=== PATIENT | male | born 1995 | race Caucasian/White ===

== ENCOUNTER 2023-02-17 03:42 | Emergency (ER) | payer SELFPAY ==
[2023-02-17 03:43] VITALS: BP 137/91; PULSE 113; RESP 14; TEMP 36.6; O2SAT 97; BMI 20.7
--- NOTE | 2023-02-17 03:52 | EKG12_ITS ---
Test Reason : CP Blood Pressure : / mmHG Vent. Rate : 091 BPM Atrial Rate : 091 BPM P-R Int : 138 ms QRS Dur : 096 ms QT Int : 346 ms P-R-T Axes : 067 034 064 degrees QTc Int : 425 ms Normal sinus rhythm Confirmed by SHARIFA ROBERTS MD ([id number]), video news editor LISSETT TAYLOR ([id number]) on 02/18/2023 12:36:57 PM Referred By: SAMMY Confirmed By:SHARIFA ROBERTS MD
[2023-02-17 03:55] VITALS: O2SAT 97
--- NOTE | 2023-02-17 04:00 | EKG12_ITS ---
Test Reason : CP Blood Pressure : / mmHG Vent. Rate : 089 BPM Atrial Rate : 089 BPM P-R Int : 142 ms QRS Dur : 098 ms QT Int : 346 ms P-R-T Axes : 074 053 065 degrees QTc Int : 420 ms Normal sinus rhythm Abnormal ECG Confirmed by ALEJANDRA STEIN, SHARIFA ([id number]), editor managing director LISSETT TAYLOR ([id number]) on 02/18/2023 12:36:38 PM Referred By: SAMMY Confirmed By:SHARIFA ROBERTS MD
[2023-02-17 04:03] LABS: Absolute Lymphocyte Count 5.28 X10^3/uL (0.83-4.51); Absolute Neutrophil Count 10.4 X10^3/uL (2.0-7.7); Basophil# 0.14 X10^3/uL; Basophil% 0.8 % (0-1); Eosinophil# 0.33 X10^3/uL; Eosinophils% 1.9 % (0-5); Hematocrit 40.3 % (40-54); Hemoglobin 14.1 g/dL (13.0-16.5); Lymphocyte # 5.28 X10^3/ul (0.83-4.51); Lymphocyte % 30.1 % (19-41); Mean Corpuscular Hgb 29.6 pg (27.0-32.0); Mean Corpuscular Volume 84.7 fL (80-94); Mean Platelet Vol. 9.7 fl (6.2-12.0); Monocyte% 7.4 % (0-10); NRBC Flagged by Analyzer 0 % (0-5); Neutrophil # 10.36 X10^3/uL (2.7-7.7); Neutrophil % 58.9 % (47-70); POSITIVE DIFFERENTIAL YES; Platelet Count 328 K/mm3 (150-450); RBC Distribution Width CV 11.8 % (11.6-14.6); RBC Distribution Width SD 35.8 fl (35.1-43.9); Red Blood Count 4.76 M/mm3 (4.6-6.2); White Blood Count 17.6 K/mm3 (4.4-11.0)
[2023-02-17 04:04] LABS: Differential Indicated SCAN CRITERIA MET
[2023-02-17] MEDS: Aspirin 81 MG TAB.CHEW 243 MG PO (04:16)
[2023-02-17] MEDS: 0.9% Normal Saline 1,000 ML 150 ML IV (04:17)
--- NOTE | 2023-02-17 04:21 | EKG12_ITS ---
Test Reason : Blood Pressure : / mmHG Vent. Rate : 091 BPM Atrial Rate : 091 BPM P-R Int : 138 ms QRS Dur : 100 ms QT Int : 344 ms P-R-T Axes : 079 045 061 degrees QTc Int : 423 ms Normal sinus rhythm Normal ECG Confirmed by ALEJANDRA STEIN, SHARIFA ([id number]), field map editor LISSETT TAYLOR ([id number]) on 02/18/2023 12:38:30 PM Referred By: Confirmed By:SHARIFA ROBERTS MD
[2023-02-17 04:23] LABS: Anion Gap 8 (5-15); BUN 7 mg/dL (7-18); BUN/Creat Ratio 6.6 RATIO (10-20); Calcium,Total 9.1 mg/dL (8.5-10.1); Chloride 103 mmol/L (98-107); Creatinine, Serum 1.06 mg/dL (0.70-1.30); EST Glomerular Filtration Rate 90 mL/min (>60); Est Glom Filt Rate - Afr Amer 109 mL/min (>60); Glucose 204 mg/dL (74-106); Potassium 2.9 mmol/L (3.5-5.1); Sodium Level 138 mmol/L (136-145); Troponin-I HS (w/2H Reflex) < 3 pg/mL (3.0-78.0)
--- NOTE | 2023-02-17 04:23 | ED.VIS.CHEST ---
HPI History of Present Illness Chief Complaint: Chest Pain Informant: patient Onset/Context/Timing Onset: Hours Activity at onset: gradual Narrative Narrative: Patient presents secondary to shortness of breath and chest pain. He states for the past 3 to 4 days has had shortness of breath as if he cannot get a deep breath in. Tonight he feels like his chest is constricted. He has had a couple sharp pains to the left sternal border. He initially thought he may be having a panic attack. He took a baby aspirin and lay down to try to rest but could not get the symptoms to ease. Patient has family history of arrhythmia but no known coronary artery disease. He denies cough or congestion. PFSH PFSH Medical History no medical history no medical history Home Medications penicillin V potassium 500 mg tablet 500 mg PO 4X/DAY #40 tabs 02/17/23 [Rx Last Taken Unknown] potassium chloride 20 mEq tablet,extended release 20 meq PO BID #8 tabs 02/17/23 [Rx Last Taken Unknown] Allergy/AdvReac Type Severity Reaction Status Date / Time No Known Allergies Allergy Verified 02/17/23 03:43 Surgical History no surgical history Social History (Updated 02/17/23 @ 04:[address] Allyson Cabrera MD) Smoking Status: Current every day smoker tobacco type: cigarettes alcohol intake: current alcohol intake frequency: holidays/special occasions only substance use type: marijuana ROS ROS ED Constitutional Constitutional ED: Denies chills or fever(s) Eyes Eyes: Denies change in vision or discharge from eye(s) ENT ENT ED: Denies discharge from eye(s), rhinorrhea or sore throat Cardiovascular Cardiovascular: Reports chest pain and racing heartbeat Respiratory/Chest Respiratory/Chest: Reports dyspnea; Denies cough Gastrointestinal Gastrointestinal: Denies abdominal pain, nausea or vomiting Genitourinary Genitourinary ED: Denies dysuria Musculoskeletal Musculoskeletal: Denies back pain or extremity pain Integumentary Denies Abrasions or rash Neurologic Neurologic: Denies headache(s) or weakness Psychiatric Psychiatric: Denies anxiety or depression Allergic/Immunologic Allergic/Immunologic ED: Denies lip swelling or urticaria EXAM Physical Exam Const Vital Signs: 02/17/23 03:43 02/17/23 03:54 02/17/23 03:55 Temperature 97.9 F Temperature Source Oral Pulse Rate 113 H Respiratory Rate 14 Respiratory Effort Normal Respiratory Pattern Normal Blood Pressure 137/91 H Blood Pressure Mean 106 Pulse Ox 97 97 Oxygen Delivery Method Room Air Room Air 02/17/23 05:42 Temperature Temperature Source Pulse Rate 82 Respiratory Rate 16 Respiratory Effort Respiratory Pattern Blood Pressure 109/95 H Blood Pressure Mean 99 Pulse Ox 96 Oxygen Delivery Method Positive well nourished and well developed General Appearance ED: well developed HEENT Reports normocephalic and head/scalp atraumatic Eyes PERRL and EOMs intact bilaterally Neck supple Chest Wall inspection of chest normal and palpation of chest normal Resp normal respiratory effort and clear to auscultation bilaterally Cardio regular rhythm Rate: tachycardic GI soft to palpation and non-tender Palpation: soft Extremity normal to inspection Neuro oriented x3 and no sensory deficits noted Sensorium / Orientation: alert Motor Exam: strength 5/5 throughout Psych mental status grossly normal Skin no rashes or lesions noted Heart Score History: Slightly/Non-Suspicious ECG: Normal Age: </= 45 years Risk Factors: No Risk Factors Troponin: </= Normal Limit Score: 0 MDM MDM MDM Narrative Medical decision making narrative: Patient had taken 1 baby aspirin at home and was given 3 additional baby aspirin on arrival. Patient is placed on senior resident care director. EKG obtained to evaluate for cardiac arrhythmia/ischemia. Chest x-ray obtained to evaluate for acute lung pathology, cardiac size, or mediastinal abnormality. Labwork obtained to evaluate for leukocytosis, anemia, and electrolyte derangement. History & Record Review Discussion w/independent historian: Patient and Family Additional record(s) reviewed:: Prior labs Lab Data Attestation: I reviewed the patient's lab results. Labs: Laboratory Results - last 24 hr 02/17/23 02/17/23 03:45 06:01 WBC 17.6 H RBC 4.76 Hgb 14.1 Hct 40.3 MCV 84.7 MCH 29.6 MCHC 35.0 RDW Std Deviation 35.8 RDW Coeff of Aquilino 11.8 Plt Count 328 MPV 9.7 Immature Gran % (Auto) 0.900 Neut % (Auto) 58.9 Lymph % (Auto) 30.1 Alfalfa % (Auto) 7.4 Eos % (Auto) 1.9 Baso % (Auto) 0.8 Absolute Neuts (auto) 10.4 H Absolute Lymphs (auto) 5.28 H Nucleated RBC % 0 D-Dimer Quant (PE/DVT) < 0.27 L Sodium 138 Potassium 2.9 L Chloride 103 Carbon Dioxide 27.0 Anion Gap 8 BUN 7 Creatinine 1.06 Estim Creat Clear Calc 87.70 Est GFR (MDRD) Af Amer 109 Est GFR (MDRD) Non-Af 90 BUN/Creatinine Ratio 6.6 L Glucose 204 H Calcium 9.1 Troponin I High Sens < 3 L 5 Radiography Diagnostic Testing: Clinical Impression(s) from Imaging Studies Chest X-Ray 02/17/23 04:25 IMPRESSION: No radiographic evidence of acute cardiopulmonary disease. Electronically Signed: Narayan Chowdhury MD at 4:44 EDT , Treatment and Re-Evaluation :: Initial EKG is sinus rhythm at 91 bpm. Computer reading is for an acute anterior ST elevation [place]. He does have an elevated J-point in V2 with slight elevation in V1. I do not see any reciprocal changes. I asked the light technician to ensure that the stickers are in good position and repeat the study. Repeat study is sinus rhythm [address] changes. Out of abundance of caution images were sent to Dr. Madan amaya to review. I spoke with him on the phone and he advises that the EKGs are normal. After 20 minutes additional EKG is performed. This is sinus at 91. Similar ST changes are noted without any further changes appreciated. CBC reveals a white count of 17.6 but normal differential is noted. Chemistry studies significant for low potassium at 2.9. Glucose is 204. D-dimer is less than 0.27. Initial troponin is less than 3 with a 2-hour delta troponin of 5. Patient is given p.o. potassium replacement. At this time his heart rate is in the 70s. Test results are discussed with him as well as family. I will give him an additional 4 days of potassium replacement. Given the patient's chronic dental infection and diffuse dental caries I will also cover him with Pen-Vee K. He has a pending appointment scheduled with dentistry for dental extraction. Return instructions are given. Discharge Plan Triage Chief Complaint: Chest Pain ED Provider: Allyson Cabrera Dx/Rx/DC Orders Clinical Impression: Pain, dental, Chest pain, Hypokalemia Instructions: ED Chest Pain, Uncertain Cause, ED Dental Pain, ED Hypokalemia Prescriptions: New potassium chloride 20 mEq tablet extended release 20 meq PO BID Qty: 8 0RF penicillin V potassium 500 mg tablet 500 mg PO 4X/DAY Qty: 40 0RF Primary Care Provider: Care Physician,No Primary Referrals: Mel Lan MD [Med Staff - Concrete Wall Grinder Operator] - As Needed Care Physician,No Primary [Primary Care Provider] - Disposition Disposition: Home, Self Care
--- NOTE | 2023-02-17 04:25 | RAD_ITS ---
EXAM: XR CHEST, 1 VIEW CLINICAL INDICATION: chest pain TECHNIQUE: Frontal view of the chest. COMPARISON: No relevant prior studies available. FINDINGS: LUNGS AND PLEURAL SPACES: Unremarkable. No consolidation or edema. No pneumothorax. No effusion. HEART: Unremarkable. Cardiac silhouette not enlarged. MEDIASTINUM: Central airways and mediastinal contour are unremarkable. BONES/JOINTS: Unremarkable. SOFT TISSUES: Unremarkable. RAD/Chest 1 View (Portable) IMPRESSION: No radiographic evidence of acute cardiopulmonary disease. Electronically Signed: Narayan Chowdhury MD at 4:44 EDT ,
[2023-02-17] MEDS: Potassium Chloride Oral Tablet 20 MEQ 40 MEQ PO (04:34)
[2023-02-17 05:01] LABS: D-Dimer Quantitative (DVT/PE) < 0.27 FEU/ug/m (0.27-0.49)
[2023-02-17 05:42] VITALS: BP 109/95; PULSE 82; RESP 16; O2SAT 96
[2023-02-17 05:59] LABS: Reflex Troponin-HS? (from REC) Y
[2023-02-17 06:44] LABS: Troponin-I HS 5 pg/mL (3.0-78.0)
[2023-02-17 06:59] VITALS: BP 109/85; PULSE 87; RESP 18; O2SAT 100
== END 2023-02-17 07:06 | disposition home or self-care (01) ==
PROVIDERS: Emergency Provider Emergency Medicine; Visit Provider Emergency Medicine
DX: R07.9 Chest pain, unspecified (principal); K08.89 Other specified disorders of teeth and supporting structures; R06.02 Shortness of breath; F17.210 Nicotine dependence, cigarettes, uncomplicated; E87.6 Hypokalemia
CPT/HCPCS: 71045; 80048; 84484; 85025; 85379; 93005; 96360; 96361; 99285; J7030; A4216